=== PATIENT | male | born 1995 | race Caucasian/White ===

== ENCOUNTER 2017-10-08 10:41 | Emergency (ER) | payer SELFPAY ==
[~2017-10-08] VITALS: Ht 170.2 cm; Wt 54.6 kg
[~2017-10-08 10:41] MED LIST: NOHOMEMEDS
[2017-10-08 10:47] VITALS: BP 133/83
== END 2017-10-08 12:21 | disposition left against medical advice (07) ==
LOC: EME 10:41
DX: J02.9 Acute pharyngitis, unspecified (principal); Z53.21 Procedure and treatment not carried out due to patient leaving prior to being seen by health care provider
CPT/HCPCS: 99281